=== PATIENT | female | born 1985 | race Caucasian/White ===

== ENCOUNTER 2021-07-21 21:15 | Emergency (ER) | payer MEDICAID ==
[~2021-07-21] VITALS: Ht 170.2 cm; Wt 77.1 kg
--- NOTE | 2021-07-21 22:50 | NUR ---
DR ACUÑA AT BEDSIDE FOR MSE.
--- NOTE | 2021-07-21 23:15 | NUR ---
covid swab sent to lab.
--- NOTE | 2021-07-21 23:18 | NUR ---
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
[2021-07-21] MEDS ORDERED: PSEUDOEPHEDRINE HCL 30 MG TABLET PO ONE (23:45)
[2021-07-21] MEDS ORDERED: PSEU120T57 PO (23:47)
--- NOTE | 2021-07-22 00:12 | NUR ---
Patient has been cleared for DC by WILLIAM. Written and verbal after care instructions given. Patient verbalizes understanding of instructions. Stressed follow up or return to ER for worsening s/s. Prescriptions explained/waiting for paper prescriptions.
[2021-07-22] MEDS ORDERED: PSEUDOEPHEDRINE HCL 30 MG TABLET ONE (00:15)
--- NOTE | 2021-07-22 00:32 | NUR ---
Patient discharged to home in stable condition. Written and verbal after care instructions given. Patient verbalizes understanding of instructions. Stressed follow up or return to ER for worsening s/s. Ambulated out of ED in steady gait.
[2021-07-22 00:33] VITALS: BP 115/66
== END 2021-07-22 00:34 | disposition home or self-care (01) ==
LOC: ER 21:20
DX: H92.02 Otalgia, left ear (principal); R05.9 Cough, unspecified; Z20.822 Contact with and (suspected) exposure to COVID-19; F17.210 Nicotine dependence, cigarettes, uncomplicated
CPT/HCPCS: 71045; A4663

== ENCOUNTER 2022-06-14 05:37 | Emergency (ER) | payer MEDICAID ==
[~2022-06-14] VITALS: Ht 167.6 cm; Wt 81.6 kg
[~2022-06-14 05:37] MED LIST: PSEU120T57 PO
--- NOTE | 2022-06-14 06:05 | NUR ---
Patient walked to ER with steady gait, NAD noted. a/ox4
--- NOTE | 2022-06-14 06:15 | NUR ---
Dr Rivas at bedside MSE in progress
--- NOTE | 2022-06-14 07:08 | NUR ---
SBAR to Ashley CARRERO
--- NOTE | 2022-06-14 07:10 | NUR ---
Received endorsement from Meme BUSTILLO
--- NOTE | 2022-06-14 07:30 | NUR ---
Patient discharged to home in stable condition. Written and verbal after care instructions given. Patient verbalizes understanding of instructions. Stressed follow up or return to ER for worsening s/s.
[2022-06-14 07:36] VITALS: BP 128/79
== END 2022-06-14 07:30 | disposition home or self-care (01) ==
LOC: ER 05:43
DX: J06.9 Acute upper respiratory infection, unspecified (principal); B97.89 Other viral agents as the cause of diseases classified elsewhere; F17.210 Nicotine dependence, cigarettes, uncomplicated; Z88.1 Allergy status to other antibiotic agents; Z91.041 Radiographic dye allergy status
CPT/HCPCS: 86403; 87070; A4663

== ENCOUNTER 2023-07-25 08:41 | Emergency (ER) | payer MEDICAID, OTHER ==
[~2023-07-25] VITALS: Ht 167.6 cm; Wt 81.6 kg
[2023-07-25] MEDS ORDERED: ALBU18HF2 INH (09:19)
[2023-07-25] MEDS ORDERED: OXYM15MI4 NS (09:19)
[2023-07-25] MEDS ORDERED: AMOX-430 PO (09:19)
[2023-07-25] MEDS ORDERED: PSEU-249 PO (09:19)
[2023-07-25 09:24] VITALS: BP 127/74; O2SAT 98
== END 2023-07-25 09:25 | disposition home or self-care (01) ==
LOC: ER 08:41
DX: J45.909 Unspecified asthma, uncomplicated (principal); J32.9 Chronic sinusitis, unspecified; F17.200 Nicotine dependence, unspecified, uncomplicated; Z79.899 Other long term (current) drug therapy; Z88.1 Allergy status to other antibiotic agents
CPT/HCPCS: A4606; A4663

== ENCOUNTER 2024-02-18 07:29 | Emergency (ER) | payer OTHER ==
[~2024-02-18] VITALS: Ht 170.2 cm; Wt 49.9 kg
[~2024-02-18 07:29] MED LIST changes: +ALBU18HF2 INH; +AMOX-430 PO; +OXYM15MI4 NS; +PSEU-249 PO
[2024-02-18 07:36] VITALS: O2SAT 98
--- NOTE | 2024-02-18 07:50 | NUR ---
Dr. Rivas at bedside for MSE.
[2024-02-18 08:17] LABS: BASOPHILS % (AUTO) 0.5 % (0.0-2.0); EOSINOPHILS # (AUTO) 0.1 K/uL (0.0-0.7); EOSINOPHILS % (AUTO) 1.2 % (0.0-7.0); HEMATOCRIT 38.7 % (31.2-41.9); HEMOGLOBIN 12.9 g/dL (10.9-14.3); LYMPHOCYTES # (AUTO) 2.2 K/uL (0.8-4.8); LYMPHOCYTES % (AUTO) 35.7 % (20.5-51.5); MEAN CORPUSCULAR HEMOGLOBIN 31.9 uug (24.7-32.8); MEAN CORPUSCULAR HGB CONC 33 g/dL (32.3-35.6); MEAN CORPUSCULAR VOLUME 95.5 fL (75.5-95.3); MONOCYTES # (AUTO) 0.5 K/uL (0.1-1.30); MONOCYTES % (AUTO) 8.4 % (0.0-11.0); NEUTROPHILS # (AUTO) 3.3 K/uL (1.8-8.9); NEUTROPHILS % (AUTO) 54.2 % (38.5-71.5); PLATELET COUNT (AUTO) 177 K/uL (179-408); RED BLOOD CELL COUNT(AUTO) 4.05 MIL/uL (3.63-4.92); WHITE BLOOD COUNT (AUTO) 6.1 K/uL (3.8-11.8)
[2024-02-18 08:19] LABS: DIFFERENTIAL COMMENT 1
[2024-02-18 08:24] LABS: CALCIUM 9.6 mg/dL (8.5-10.1); CREATININE 0.6 mg/dL (0.6-1.3); POTASSIUM 3.9 mmol/L (3.5-5.1)
[2024-02-18 08:39] LABS: THYROID STIMULATING HORMONE 1.885 mIU/mL (0.358-3.740)
[2024-02-18 08:46] LABS: *BILIRUBIN,URIN NEGATIVE (NEGATIVE); *BLOOD, URINE NEGATIVE (NEGATIVE); *CLARITY,URINE CLEAR (CLEAR); *COLOR,URINE YELLOW (YELLOW); *KETONES,URINE NEGATIVE (NEGATIVE); *PROTEIN,URINE NEGATIVE (NEGATIVE); LEUKOCYTE ESTERASE ,URINE NEGATIVE (NEGATIVE); NITRITE, URINE NEGATIVE (NEGATIVE); PH,URINE 6.5 (5.0-8.0); UGLUCOSE NEGATIVE (NEGATIVE)
[2024-02-18 08:47] LABS: *URINE HCG, QUAL NEGATIVE (NEGATIVE)
[2024-02-18 09:27] LABS: ALBUMIN 3.5 g/dL (3.4-5.0); BILIRUBIN,DIRECT 0.1 mg/dL (0.0-0.2); BILIRUBIN,TOTAL 0.6 mg/dL (0.2-1.0); TOTAL PROTEIN, SERUM 6.7 g/dL (6.4-8.2)
[2024-02-18] MEDS ORDERED: ACET1TAB23 PO (10:12)
== END 2024-02-18 10:17 | disposition home or self-care (01) ==
LOC: ER 07:31
DX: R30.0 Dysuria (principal); M54.9 Dorsalgia, unspecified; R10.2 Pelvic and perineal pain; F17.200 Nicotine dependence, unspecified, uncomplicated; Z79.1 Long term (current) use of non-steroidal anti-inflammatories (NSAID); Z79.52 Long term (current) use of systemic steroids; Z79.899 Other long term (current) drug therapy; Z88.1 Allergy status to other antibiotic agents; Z91.040 Latex allergy status
CPT/HCPCS: 36415; 84443; 84703; 85025; A4606; A4663

== ENCOUNTER 2025-02-10 02:02 | Emergency (ER) | payer SELFPAY ==
[~2025-02-10] VITALS: Ht 170.2 cm; Wt 79.4 kg
[~2025-02-10 02:02] MED LIST changes: +ACET1TAB23 PO
[2025-02-10 02:31] VITALS: BP 132/93
[2025-02-10] MEDS ORDERED: NEOMY/BACITRA/POLYMYXIN B OINT UD PACKET TP ONE (02:33)
[2025-02-10] MEDS ORDERED: SULFAMETH/TRIMETH 800/160 MG TABLET ONE (02:34)
[2025-02-10] MEDS ORDERED: ACETAMINOPHEN 500 MG TABLET ONE (02:34)
[2025-02-10] MEDS ORDERED: SULF1TAB48 PO (02:34)
[2025-02-10] MEDS ORDERED: NEOM28.38 TP (02:35)
[2025-02-10] MEDS: NEOMY/BACITRA/POLYMYXIN B OINT UD PACKET TP ONE (02:36)
[2025-02-10] MEDS: SULFAMETH/TRIMETH 800/160 MG TABLET PO ONE (02:36)
[2025-02-10] MEDS: ACETAMINOPHEN 500 MG TABLET PO ONE (02:36)
[2025-02-10] MEDS ORDERED: KETOROLAC TROMETHAMINE 30 MG INJ ONE (02:39)
[2025-02-10] MEDS: KETOROLAC TROMETHAMINE 30 MG INJ IM ONE (02:40)
[2025-02-10] MEDS ORDERED: TDAP DIPH,PERTUSS,TET VAC/PF 0.5 ML DISP.SYRIN IM ONE ×2 (02:44→02:45)
[2025-02-10 03:13] VITALS: BP 128/89; TEMP 98.2; O2SAT 96
== END 2025-02-10 03:14 | disposition home or self-care (01) ==
LOC: ER 02:11
DX: T24.012A Burn of unspecified degree of left thigh, initial encounter (principal); F17.210 Nicotine dependence, cigarettes, uncomplicated; Z88.1 Allergy status to other antibiotic agents; Z88.8 Allergy status to other drugs, medicaments and biological substances; Z87.19 Personal history of other diseases of the digestive system; Z60.2 Problems related to living alone; X08.8XXA Exposure to other specified smoke, fire and flames, initial encounter; Y93.9 Activity, unspecified; Y92.89 Other specified places as the place of occurrence of the external cause; Y99.8 Other external cause status
CPT/HCPCS: 99284; 90715; 96372; 90471; J1885; A4606; A4663; A9150